=== PATIENT | female | born 1970 | race Caucasian/White ===

== ENCOUNTER 2016-12-25 10:05 | Emergency (ER) | payer SELFPAY ==
[~2016-12-25] VITALS: Ht 154.9 cm; Wt 63.0 kg
[2016-12-25] MEDS ORDERED: DIVA500T52 PO (10:13)
[2016-12-25] MEDS ORDERED: METF500T4 PO (10:13)
[2016-12-25] MEDS ORDERED: OLAN5TAB2 PO (10:13)
[2016-12-25] MEDS ORDERED: FLUO-191 PO (10:13)
[2016-12-25] MEDS ORDERED: QUET100T PO (10:13)
[2016-12-25] MEDS ORDERED: SITA100 PO (10:13)
[2016-12-25] MEDS ORDERED: NIAC500SR PO (10:13)
[2016-12-25] MEDS ORDERED: ACET160E13 PO (10:13)
[2016-12-25] MEDS ORDERED: HYDROCODONE/ACETAMINOPHEN 5-325 MG TABLET PO ONE (13:00)
[2016-12-25 14:00] VITALS: BP 111/64
== END 2016-12-25 15:06 | disposition home or self-care (01) ==
LOC: EMS 10:06
DX: S83.91XA Sprain of unspecified site of right knee, initial encounter (principal); M25.461 Effusion, right knee; E11.9 Type 2 diabetes mellitus without complications; M19.90 Unspecified osteoarthritis, unspecified site; W19.XXXA Unspecified fall, initial encounter; Y93.89 Activity, other specified; Y92.89 Other specified places as the place of occurrence of the external cause; Y99.8 Other external cause status
CPT/HCPCS: 99284

== ENCOUNTER 2020-12-05 06:16 | Day surgery (SDC) | payer OTHER ==
[~2020-12-05] VITALS: Ht 154.9 cm; Wt 75.0 kg
[~2020-12-05 06:16] MED LIST: ALOG25TA PO; ATOR20TA86 PO; CLOM25 PO; DIVA-80 PO; DOCU-350 PO; FLUO-191 PO; IBUP-2071 PO; LACT30L PO; LISI-892 PO; METF-960 PO; OLAN5TAB2 PO; QUET100T PO; RINGERS SOLUTION,LACTATED 1,000 ML IV ONE; TRAZ-257 PO
[2020-12-05] MEDS ORDERED: NEOSTIGMINE METHYLSULFATE 1 MG/ML 10 ML VIAL IVP ONE (06:17)
[2020-12-05] MEDS ORDERED: LIDOCAINE 2% 30 ML JELLY TP ONE (06:17)
[2020-12-05] MEDS ORDERED: PROPOFOL 1% 20 ML VIAL IVP ONE (06:17)
[2020-12-05] MEDS ORDERED: ROCURONIUM BROMIDE 10 MG/ML 5 ML VIAL IVP ONE (06:17)
[2020-12-05] MEDS ORDERED: GLYCOPYRROLATE 0.2 MG/ML VIAL IM ONE (06:17)
[2020-12-05] MEDS ORDERED: DEXAMETHASONE SOD PHOS 4 MG/ML VIAL IVP ONE (06:17)
[2020-12-05] MEDS ORDERED: KETOROLAC TROMETHAMINE 60 MG/2 ML VIAL IM ONE (06:17)
[2020-12-05] MEDS ORDERED: ONDANSETRON HCL 4 MG/2 ML VIAL IVP ONE (06:17)
[2020-12-05] MEDS ORDERED: PHENYLEPHRINE HCL 1% 15 ML NASAL SPRAY NASAL ONE (06:17)
[2020-12-05] MEDS ORDERED: LIDOCAINE/PF 2% 5 ML VIAL IM ONE (06:17)
[2020-12-05] MEDS ORDERED: RINGERS SOLUTION,LACTATED 1,000 ML IV ONE ×2 (06:30→09:08)
[2020-12-05 06:55] LABS: COVID AG,FIA SOURCE NASOPHARYNGEAL
[2020-12-05 06:58] LABS: BASOPHILS % (AUTO) 0.4 % (0.0-2.0); EOSINOPHILS % (AUTO) 0.4 % (1.0-6.0); HEMATOCRIT 38.6 % (36-46); HEMOGLOBIN 12.7 g/dL (12.0-16.0); LYMPHOCYTES # (AUTO) 1.8 K/uL (1.0-4.8); MEAN CORPUSCULAR HEMOGLOBIN 31.5 pg (26.0-34.0); MEAN CORPUSCULAR VOLUME 96 fL (80-100); MONOCYTES # (AUTO) 0.4 K/uL (0.1-1.0); MONOCYTES % (AUTO) 7.2 % (2.0-9.0); NEUTROPHILS # (AUTO) 2.8 K/uL (1.8-7.7); PLATELET COUNT (AUTO) 319 K/uL (150-450); RED BLOOD CELL COUNT(AUTO) 4.04 MIL/uL (4.00-5.20); RED CELL DISTRIBUTION WIDTH 15.7 % (11.5-14.5)
[2020-12-05] MEDS ORDERED: AMPICILLIN SODIUM 1 GM/VIAL ONE ×2 (07:02→07:08)
[2020-12-05 07:16] LABS: ANION GAP 9 mmol/L (8-16); CALCIUM, TOTAL 9.9 mg/dL (8.8-10.5); CARBON DIOXIDE 30 mmol/L (22-29); CHLORIDE 101 mmol/L (98-107); CREATININE 0.61 mg/dL (0.60-1.30); GLOMERULAR FILTR. RATE CALC > 60 mL/min (>60); GLUCOSE,RANDOM 165 mg/dL (70-110); POTASSIUM 4.7 mmol/L (3.5-5.1); SODIUM SERUM 140 mmol/L (136-145); UREA NITROGEN, BLOOD 16 mg/dL (7-18)
[2020-12-05 07:22] LABS: ALANINE AMINOTRANSFERASE 20 U/L (12-78); ALBUMIN 3.7 g/dL (3.4-5.0); ALKALINE PHOSPHATASE 53 U/L (46-116); ASPARTATE AMINOTRANSFERASE 9 U/L (15-37); BILIRUBIN,TOTAL 0.2 mg/dL (0.1-1.0); TOTAL PROTEIN, SERUM 7.9 g/dL (6.4-8.2)
[2020-12-05] MEDS ORDERED: SUGAMMADEX SODIUM 200 MG/2 ML VIAL IVP ONE (10:35)
[2020-12-05] MEDS ORDERED: HYDROmorphone 2 MG/ML VIAL IVP PRN (11:45)
[2020-12-05] MEDS ORDERED: OXYGEN THERAPY IH SCH (11:45)
[2020-12-05] MEDS ORDERED: MEPERIDINE-PF 25 MG/ML VIAL IVP PRN (11:45)
[2020-12-05] MEDS ORDERED: FentaNYL CITRATE PF 100 MCG/2 ML VIAL IVP PRN (11:45)
== END 2020-12-05 11:50 | disposition home health service, planned readmission (86) ==
LOC: SURGERY 06:16
PROVIDERS: ATTEND Dentist General Practice
DX: K05.30 Chronic periodontitis, unspecified (principal); K03.6 Deposits [accretions] on teeth; I10 Essential (primary) hypertension; F20.9 Schizophrenia, unspecified; F41.9 Anxiety disorder, unspecified; E78.5 Hyperlipidemia, unspecified; E11.9 Type 2 diabetes mellitus without complications; F28 Other psychotic disorder not due to a substance or known physiological condition; K21.9 Gastro-esophageal reflux disease without esophagitis; Z79.899 Other long term (current) drug therapy; M19.90 Unspecified osteoarthritis, unspecified site; F32.9 Major depressive disorder, single episode, unspecified; Z98.890 Other specified postprocedural states; G47.00 Insomnia, unspecified
CPT/HCPCS: 36415; 41899; 71045; 80053; 85025; 85610; 85730; 87426; 93005; A9575; C9803; J0290; J1100; J1885; J2405; J2704; J3490 ×3; J7120